=== PATIENT | female | born 1950 | race Caucasian/White ===

== ENCOUNTER → 2016-08-04 16:52 | Outpatient (CLI) | payer OTHER ==
[2015-08-08 06:53] VITALS: BMI 29.1
[~2016-08-04 16:52] MED LIST: ATENOLOL PO; LISINOPRIL10 MG PO; [UNRECOGNIZED DRUG - REMARK] PO
== END | disposition home or self-care (01) ==
LOC: D.MAMMO 10:00
DX: R92.8 Other abnormal and inconclusive findings on diagnostic imaging of breast (principal)